=== PATIENT | female | born 1975 | race Caucasian/White ===

== ENCOUNTER 2017-04-19 14:50 | Emergency (ER) | payer OTHER ==
[2017-04-19 16:22] LABS: Urine Appearance Clear; Urine Bilirubin Negative (NEGATIVE); Urine Blood 150 /ul (NEGATIVE); Urine Color Yellow; Urine Ketone Negative (NEGATIVE); Urine Nitrite Negative (NEGATIVE); Urine Protein Negative (NEGATIVE); Urine RBC 0-5 /hpf (0-5); Urine Urobilinogen Normal (NORMAL); Urine pH 5.5 pH (5.0-7.0)
--- NOTE | 2017-04-19 16:22 | ERNOTE ---
ER Female HPI Date of Service: 04/19/17 Stated Complaint: VAGINAL BLEEDING Presenting Symptoms: vaginal bleeding Time Seen by Provider: 04/19/17 16:13 Source: patient Exam Limitations: no limitations Immunizations: IMMUNIZATION HX Immunizations Up to Date Yes History of Influenza Vaccine Yes Hx Pneumococcal Vaccination Yes Allergies/Adverse Reactions: Allergies terbinafine HCl [From Lamisil] Adverse Reaction (Mild, Verified 04/19/17 15:11) RASH Home Medications: HOME MEDICATIONS Citalopram Hydrobromide [Celexa] 20 mg PO DAILY 05/20/15 [Last Taken Unknown] Lisdexamfetamine Dimesylate [Vyvanse] 20 mg PO DAILY 05/20/15 [Last Taken Unknown] lamoTRIgine [Lamictal] 150 mg PO DAILY 05/20/15 [Last Taken Unknown] - History of Present Illness Narrative: Had a heavy gush of vaginal bleeding. Had just finished a short period a few days ago. Has some suprapubic pain. Called her OB who of course recommended she come to the ER. She has not had sex for 6 months so denies any possibility of . She has had on ectopic before and ovarian cyst. Timing: Present: constant Quality: Present: moderate, sharpness Onset Location: Present: suprapubic Radiation: Present: none Activities at Onset: Present: other - at work Sexual [place] History: Present: not active, greater than 2 months ago Associated Symptoms: Absent: fever/chills, diaphoresis, nausea, vomiting, dysuria, urinary frequency Review of Systems - Review of Systems Constitutional: Present: no symptoms reported Respiratory: Present: no symptoms reported Cardiology: Present: no symptoms reported Gastrointestinal/Abdominal: Present: no symptoms reported Genitourinary: Present: See HPI Musculoskeletal: Present: no symptoms reported - Patient's Past Medical History Patient History - Medical: Anxiety, Depression Patient History - Cardiac/Respiratory: No pertinent hx Patient History - Cancer: No Hx of Cancer Patient History - Surgical Procedures: Appendectomy, Other Patient History - Other: None LMP (females 10-50): just finished. LMP (Calendar): 01/23/16 - Social History Living Situations: home Abuse History: No History of abuse Psych History: Hx of Anxiety, Hx of Depression, Current tx/ever been on anti- depressants or anti-anxiety meds Smoking Status: Current every day smoker Alcohol Use: occasionally Drug Use: none - Immunizations Immunizations Up to Date: Yes Hx Pneumococcal Vaccination: Yes History of Influenza Vaccine: Yes Physical Exam - Physical Exam General Appearance: Present: wd/wn, alert Respiratory: Present: no respiratory distress, normal breath sounds Cardiovascular/Chest: Present: regular rate, rhythm, no murmur Gastrointestinal/Abdominal: Present: normal bowel sounds, nondistended, soft, tenderness - mild suprapubic Back Exam: Present: normal inspection, no CVA tenderness Extremity Exam: Present: normal inspection Skin Exam: Present: normal color, warm/dry ED Progress - Results and Orders Patient's Lab Results:: I have reviewed the patient's lab results. - Vital Signs Patient's Vital Signs:: I have reviewed the patient's vital signs. Vital Signs: Vital Signs 04/19/17 15:09 Temperature 36.4 C L Pulse Rate 93 Respiratory 16 Rate Blood Pressure 145/98 O2 Sat by Pulse 96 Oximetry - CT/Ultrasound CT/Ultrasound Narrative: US - normal uterus. nonviz left ovary, N right ovary. - Progress/Reassessment Chief Complaint: Genitourinary Problem Plan - Plan Plan: Home. 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 Departure Clinical Impression: Premenopausal menorrhagia - Departure Disposition: Home self-care Condition: Good Instructions: Dysfunctional Uterine Bleeding Referrals: Nichelle Moulton MD [Primary Care Provider] -
--- OUTSIDE RECORDS SUMMARY | 2017-04-19 16:22 | XMS REPORT | Continuity of Care Document ---
:[address] [facility] [place] [address] Care Team Providers Name Role Phone Unavailable Primary Care Provider Unavailable Source Comments This disclosure is being made pursuant to the [employer] program and maynot contain all information available regarding this patient.[facility] Active Allergies and Adverse Reactions Not on File Current Medications Be aware that medications may not be up to date as of this document. Alwaysverify current medications with the patient. Not on file Active Problems Not on file Social History Tobacco Use Types Packs/Day Years Used Date Never Assessed Plan of Care Health Maintenance Due Date Last Done Comments Retired-Pertussis Vaccine Adult 1996 Retired-Tetanus Vaccine Adult 1996 Pap Smear 1998 Retired-INFLUENZA VACCINE 07/26/2015 Results from Last 3 Months Not on file
[2017-04-19 16:23] LABS: Urine Bacteria None Seen; Urine WBC 0-5 /hpf (0-5)
--- OUTSIDE RECORDS SUMMARY | 2017-04-19 16:23 | XMS REPORT | Continuity of Care Document ---
:1975 Author Organization [facility] ([facility]) Address [place] [address] Phone [phone] Care Team Providers Name Role Phone Provider, No-Primary Care Primary Care Provider Unavailable Source Comments This disclosure is being made pursuant to the Care Everywhere program, applicable federal and state laws, and may not contain all informaitonavailable regarding this patient.[facility] ([facility]) Active Allergies and Adverse Reactions Not on File Current Medications Not on file Active Problems Not on file Social History Tobacco Use Types Packs/Day Years Used Date Never Assessed Plan of Care Health Maintenance Due Date Last Done Comments Hepatitis B Vaccine (1 of 3 1977 - Primary Series) Tdap Vaccine 1988 Lipid Disorder Screening 1995 MMR Vaccine 1995 Td Vaccine 1995 Cervical Cancer Screening 2007 12/17/1997, Additional history exists 11/10/1996, 11/10/1996 Influenza Vaccine: Seasonal 06/25/2016 (#1) Results from Last 3 Months Not on file
[2017-04-19 17:45] VITALS: BP 116/81
== END 2017-04-19 17:53 | disposition home or self-care (01) ==
LOC: ER 14:50
DX: N92.4 Excessive bleeding in the premenopausal period (principal); F41.8 Other specified anxiety disorders; Z72.0 Tobacco use